=== PATIENT | female | born 1960 | race Caucasian/White ===

== ENCOUNTER 2017-12-08 21:12 | Emergency (ER) | payer OTHER | END 2017-12-09 00:01 | disposition home or self-care (01) | LOC: FTE 12-09 00:01 | DX: R00.2 Palpitations (principal) | CPT/HCPCS: 93005; 99283-25 ==

== ENCOUNTER 2018-10-31 22:17 | Emergency (ER) | payer OTHER ==
[2018-11-01] MEDS: AMLODIPINE 5 MG TAB PO (02:38)
== END 2018-11-01 02:49 | disposition home or self-care (01) ==
LOC: E/R 22:17
DX: I10 Essential (primary) hypertension (principal); R40.2142 Coma scale, eyes open, spontaneous, at arrival to emergency department; R40.2252 Coma scale, best verbal response, oriented, at arrival to emergency department; R40.2362 Coma scale, best motor response, obeys commands, at arrival to emergency department
CPT/HCPCS: 93005; 99283-25

== ENCOUNTER 2018-11-02 18:48 | Emergency (ER) | payer OTHER ==
[2018-11-02] MEDS: SOD CHLORIDE 0.9% 1,000 ML IV (19:19)
[2018-11-02 19:29] LABS: ADD MAN DIFF? NO
[2018-11-02 19:30] LABS: BASOPHILS % 0.3 % (0.0-2.0); EOSINOPHILS # 0.1 10^3/ul (0.0-0.5); EOSINOPHILS % 0.9 % (0.0-7.0); HEMATOCRIT 40.5 % (37.0-47.0); HEMOGLOBIN 14.3 g/dl (12.0-16.0); LYMPHOCYTES # 2.6 10^3/ul (0.8-2.9); LYMPHOCYTES % 22.2 % (15.0-51.0); MEAN CORPUSCULAR HEMOGLOBIN 30.2 pg (29.0-33.0); MEAN CORPUSCULAR HGB CONC 35.3 g/dl (32.0-37.0); MEAN CORPUSCULAR VOLUME 85.6 fl (82.0-101.0); MEAN PLATELET VOLUME 10.4 fl (7.4-10.4); MONOCYTE # 0.8 10^3/ul (0.3-0.9); MONOCYTES % 7.3 % (0.0-11.0); NEUTROPHIL # 7.9 10^3/ul (1.6-7.5); PLATELET COUNT 260 10^3/UL (140-415); RED BLOOD COUNT 4.73 10^6/ul (4.20-5.40); RED CELL DISTRIBUTION WIDTH 11.9 % (11.5-14.5)
[2018-11-02 19:30] LABS: WHITE BLOOD COUNT 11.5 10^3/ul (4.8-10.8)
[2018-11-02] MEDS: METOPROLOL 5 MG INJ IV (19:38)
[2018-11-02 19:49] LABS: ANION GAP 13 (5-13); BLOOD UREA NITROGEN 9 mg/dl (7-20); CALCIUM 10.4 mg/dl (8.4-10.2); CARBON DIOXIDE 25 mmol/L (21-31); CHLORIDE 104 mmol/L (97-110); CREATININE 0.48 mg/dl (0.44-1.00); Estimated GFR > 60 mL/min (>60); GLUCOSE 169 mg/dl (70-220); POTASSIUM 3.4 mmol/L (3.5-5.1); SODIUM 142 mmol/L (135-144)
== END 2018-11-02 21:54 | disposition home or self-care (01) ==
LOC: E/R 18:48
DX: R00.2 Palpitations (principal); R00.0 Tachycardia, unspecified; I10 Essential (primary) hypertension; T46.1X5A Adverse effect of calcium-channel blockers, initial encounter; T88.7XXA Unspecified adverse effect of drug or medicament, initial encounter; Y82.9 Unspecified medical devices associated with adverse incidents; Z79.82 Long term (current) use of aspirin
CPT/HCPCS: 36415; 71045; 80048; 85025; 93005; 96374; 99285-25